=== PATIENT | male | born 1985 | race Caucasian/White ===

== ENCOUNTER 2018-01-22 22:36 | Emergency (ER) | payer OTHER ==
[2018-01-22] MEDS ORDERED: HYDROMORPHONE HCL INJ/PF 2 MG/ML AMPULE IV ONE (23:15)
[2018-01-22] MEDS ORDERED: NORMAL SALINE 1000 ML 1,000 ML IV ONE (23:15)
[2018-01-22] MEDS ORDERED: ONDANSETRON HCL INJ/PF 4 MG/2 ML SDV IV ONE (23:15)
--- NOTE | 2018-01-22 23:19 | ER Document Report ---
ED General - General Chief Complaint: Abdominal Pain Stated Complaint: ABDOMINAL PAIN Time Seen by Provider: 01/22/18 23:10 Notes: Patient is a 32-year-old male presents with complaint of epigastric abdominal pain. Is been intermittent for a few months. Became severe tonight. Says is always worse whenever he eats or drinks. He has some vomiting. No blood in his emesis. No black or tarry stools. Never had any abdominal surgeries. Is not yet seen his doctor about this. Denies any fevers. Does not take any medications on a regular basis. He says he has been under some stress recently. No chest pain. He says sometimes he will take Prilosec for this and it does help sometimes. TRAVEL OUTSIDE OF THE [place] IN LAST 30 DAYS: No Past Medical History - Social History Smoking Status: Never Smoker Frequency of alcohol use: None Drug Abuse: None Family History: Reviewed & Not Pertinent - Immunizations Hx Diphtheria, Pertussis, Tetanus Vaccination: Yes - 2010 Review of Systems - Review of Systems Notes: My Normal Review Basic REVIEW OF SYSTEMS: CONSTITUTIONAL : Denies fever, chills, or sweats. Denies recent illness. EENT: Denies eye, ear, throat, or mouth pain or symptoms. Denies nasal or sinus congestion. CARDIOVASCULAR: Denies chest pain. RESPIRATORY: Denies cough, cold, or chest congestion. Denies shortness of breath, difficulty breathing, or wheezing. GASTROINTESTINAL: epigastric abdominal pain. Vomiting. GENITOURINARY: Denies difficulty urinating, painful urination, burning, frequency, or blood in urine. MUSCULOSKELETAL: Denies neck or back pain or joint pain or swelling. SKIN: Denies rash or skin lesions. NEUROLOGICAL: Denies altered mental status or loss of consciousness. Denies headache. Denies weakness or paralysis or loss of use of either side. Denies problems with gait or speech. Denies sensory or motor loss. ALL OTHER SYSTEMS REVIEWED AND NEGATIVE. Physical Exam - Vital signs Vitals: Temp Pulse Resp BP Pulse Ox 97.4 F 65 18 184/109 H 100 01/22/18 22:37 01/22/18 22:37 01/22/18 22:37 01/22/18 22:37 01/22/18 22:37 - Notes Notes: General Appearance: Well nourished, alert, cooperative, no acute distress, moderate obvious discomfort. Well-appearing. Vitals: reviewed, See vital signs table. Head: no swelling or tenderness to the head Eyes: PERRL, EOMI, Conjuctiva clear Mouth: No decreasd moisture Lungs: No wheezing, No rales, No rhonci, No accessory muscle use, good air exchange bilaterally. Heart: Normal rate, Regular rythm, No murmur, no rub Abdomen: Normal BS, soft, No rigidity, mild epigastric and some right upper quadrant abdominal tenderness palpation., No guarding, no rebound, no abdominal masses, no organomegaly Extremities: strength 5/5 in all extremities, good pulses in all extremities, no swelling or tenderness in the extremities, no edema. Skin: warm, dry, appropriate color, no rash Neuro: speech clear, oriented x 3, normal affect, responds appropriately to questions. Course - Re-evaluation Re-evalutation: 01/23/18 00:58 Currently patient is pain-free and looks well. Awaiting results of his ultrasound. 01/23/18 05:48 Ultrasound shows very mildly thickened gallbladder wall. He does have some gallstones but there is no surrounding pericholecystic fluid. Also the patient does not have a leukocytosis and almost all his pain on palpation is in epigastric region. He has very little pain on palpation of right upper quadrant initial exam and now has no pain to palpation of right upper quadrant. Informed patient his gallbladder could be contributing to some symptoms however I think most of his symptoms are related to gastritis and reflux as the patient continues to feel some reflux type symptoms going into his esophagus. I will place him on Pepcid. Also patient did mention that he is under a lot of stress recently. He said his doctor has sent him to see a psychiatrist. He has an upcoming point with a psychiatrist. I asked about suicidal ideations and he says he has had some in the past but currently is not suicidal and has no intention on hurting himself. Patient's father is at bedside and agrees. Patient says he is not a danger to himself he does not wish to speak with our mental health people here and wants to wait for his appointment. Patient agrees to return to ER immediately if he has recurrent thoughts of suicide or thought that he was to hurt himself or has worsening depression. Also will refer the patient surgery clinic for further evaluation of his gallbladder. I informed patient of his findings on ultrasound and informed him that he should call the surgical clinic office this morning to make a close follow-up appointment. I talked about diet changes and avoiding spicy, fried, and fatty foods. I informed him he must have a low threshold to return to ER immediately if he has recurrent pain, vomiting, any fevers, or feels that his symptoms are returning in any way. Patient agrees with plan and was discharged home. Dictation of this chart was performed using voice recognition software; therefore, there may be some unintended grammatical errors. - Vital Signs Vital signs: Temp Pulse Resp BP Pulse Ox 97.3 F 75 15 131/56 H 99 01/23/18 01:54 01/23/18 01:54 01/23/18 01:54 01/23/18 01:54 01/23/18 01:54 - Laboratory Result Diagrams: 01/22/18 23:25 01/22/18 23:25 Laboratory results interpreted by me: 01/22/18 01/22/18 23:25 23:25 MCV 79 L MCH 26.9 L RDW 14.2 H Potassium 3.5 L - EKG Interpretation by Me Additional EKG results interpreted by me: 01/22/18 23:59 EKG is reviewed and interpreted by me. EKG shows sinus rhythm with a rate of [address] segment elevation or depression. No ischemic T wave inversions. MO interval, QRS duration, QTc intervals are within normal range. Discharge - Discharge Clinical Impression: Abdominal pain Qualifiers: Abdominal location: epigastric Qualified Code(s): R10.13 - Epigastric pain Cholelithiasis Qualifiers: Cholelithiasis location: gallbladder Cholecystitis presence: without cholecystitis Biliary obstruction: without biliary obstruction Qualified Code(s) : K80.20 - Calculus of gallbladder without cholecystitis without obstruction Hypertension Qualifiers: Hypertension type: unspecified Qualified Code(s): I10 - Essential (primary) hypertension Depression Qualifiers: Depression Type: unspecified Qualified Code(s): F32.9 - Major depressive disorder, single episode, unspecified Condition: Good Disposition: HOME, SELF-CARE Additional Instructions: As discussed with you, your ultrasound did show that you have some gallstones. Your gallbladder wall is just slightly thickened; however, your blood work does not show signs of gallbladder infection. Pain is mostly in the upper middle portion of your abdomen which suggests a lot of your pain is coming from the stomach itself. We therefore we will place you on Pepcid every day. I still think some of your symptoms could be coming from her gallbladder and therefore referred you to the surgery clinic. He did have a low threshold to return to the ER if you develop fevers, recurrent pain, or vomiting as these could be signs that your gallbladder is becoming infected. Also, please return to the ER immediately if you having thoughts of suicide or think your danger to herself. Please eat a very bland diet and avoid fatty foods, fried foods, and spicy foods. Please call the surgery clinic this morning to make a close follow up appointment. Please keep a log of your blood pressures and follow up with your primary care doctor. Prescriptions: Famotidine [Pepcid 40 mg Tablet] 40 mg PO DAILY #30 tablet Ondansetron [Zofran Odt 4 mg Tablet] 1 tab PO Q4H PRN #15 tab.rapdis PRN Reason: For Nausea/Vomiting Forms: Return to Work Referrals: JORGE MEJÍA MD [ACTIVE STAFF] - 01/25/18
[2018-01-22 23:36] LABS: ABSOLUTE BASOPHILS # (AUTO) 0.1 10^3/uL (0.0-0.2); ABSOLUTE EOSINOPHILS # (AUTO) 0.3 10^3/uL (0.0-0.6); ABSOLUTE MONOCYTES (AUTO) 0.7 10^3/uL (0.1-1.4); ABSOLUTE NEUT (AUTO) 7.1 10^3/uL (1.7-8.2); BASOPHILS % (AUTO) 0.8 % (0-2); EOSINOPHILS % (AUTO) 3.2 % (0-6); HEMATOCRIT 43.4 % (37.9-51.0); HEMOGLOBIN 14.8 g/dL (13.5-17.0); LYMPHOCYTES % (AUTO) 19.7 % (13-45); MEAN CORPUSCULAR HEMOGLOBIN 26.9 pg (27.0-33.4); MEAN CORPUSCULAR VOLUME 79 fl (80-97); MONOCYTES % (AUTO) 7.2 % (3-13); PLATELET COUNT 284 10^3/uL (150-450); RED BLOOD COUNT 5.48 10^6/uL (4.35-5.55); RED CELL DISTRIBUTION WIDTH 14.2 % (11.5-14.0); SEGMENTED NEUTROPHILS % (AUTO) 69.1 % (42-78); TOTAL CELLS COUNTED % (AUTO) 100 %; WHITE BLOOD COUNT 10.3 10^3/uL (4.0-10.5)
[2018-01-22 23:47] LABS: ALANINE AMINOTRANSFERASE 28 U/L (21-72); ALBUMIN 4.5 g/dL (3.5-5.0); ALKALINE PHOSPHATASE 77 U/L (38-126); ANION GAP 11 (5-19); ASPARTATE AMINO TRANSFERASE 20 U/L (17-59); BILIRUBIN,DIRECT 0.2 mg/dL (0.0-0.4); BILIRUBIN,TOTAL 0.8 mg/dL (0.2-1.3); BLOOD UREA NITROGEN 10 mg/dL (7-20); CALCIUM 9.2 mg/dL (8.4-10.2); CARBON DIOXIDE 30 mmol/L (22-30); CHLORIDE 100 mmol/L (98-107); GLUCOSE 104 mg/dL (75-110); LIPASE 112.5 U/L (23-300); POTASSIUM 3.5 mmol/L (3.6-5.0); SODIUM 140.9 mmol/L (137-145); TOTAL PROTEIN 7.4 g/dL (6.3-8.2)
--- NOTE | 2018-01-23 01:01 | RADIOLOGY REPORT (SQ) ---
US ABDOMEN DOPPLER LIMITED HISTORY: epigastric and RUQ abdominal pain COMPARISON: None. TECHNIQUE: Grayscale and color Doppler imaging of the right upper quadrant was performed. FINDINGS: The liver measures 18.9 cm. Increased echogenicity of the hepatic parenchyma with decreased through transmission and poor visualization of the portal triads, suggesting hepatic steatosis. Shadowing gallstones are present. Borderline thickened gallbladder wall. No pericholecystic fluid. Common bile duct measures 4 mm. No intrahepatic biliary ductal dilatation. The pancreas is not visualized due to overlying bowel gas. Right kidney measures 11.5 cm in length, without hydronephrosis. Visualized portions of the IVC and aorta are patent. IMPRESSION: Gallstones with borderline thickened gallbladder wall. Findings are ambiguous for acute cholecystitis.
[2018-01-23] MEDS ORDERED: MAG HYDROX/AL HYDROX/SIMETH SUSP 30 ML UDCUP PO ONE (01:34)
[2018-01-23] MEDS ORDERED: FAMOTIDINE 20 MG TABLET PO ONE (01:35)
[2018-01-23] MEDS ORDERED: ONDANSETRON ODT 4 MG TAB (6 TAB/ER DISP) PO PRN (01:40)
[2018-01-23 01:58] VITALS: BP 131/56
--- NOTE | 2018-01-23 10:44 | EKG REPORT ---
SEVERITY:- NORMAL ECG - SINUS RHYTHM : Confirmed by: Julianne Richter 23-Jan-2018 10:44:16
== END 2018-01-23 01:55 | disposition home or self-care (01) ==
LOC: ER 22:36
DX: K80.20 Calculus of gallbladder without cholecystitis without obstruction (principal); I10 Essential (primary) hypertension; R10.13 Epigastric pain; F32.9 Major depressive disorder, single episode, unspecified; R11.10 Vomiting, unspecified
CPT/HCPCS: 93005; 99284; 96361; 96374; 96375; 36415; 83690; 85025; 80053; 76705; 93976; 93010; J1170; J2405; J7030

== ENCOUNTER 2018-01-27 03:11 | Observation (INO) | payer OTHER ==
[2018-01-27] MEDS ORDERED: HYDROMORPHONE HCL INJ/PF 2 MG/ML AMPULE IV ONE ×3 (03:38→05:05)
[2018-01-27] MEDS ORDERED: ONDANSETRON HCL INJ/PF 4 MG/2 ML SDV IV ONE (03:38)
[2018-01-27] MEDS ORDERED: NORMAL SALINE 1000 ML 1,000 ML IV ONE (03:38)
--- NOTE | 2018-01-27 03:46 | ER Document Report ---
ED General - General Chief Complaint: Abdominal Pain Stated Complaint: ABDOMINAL PAIN Time Seen by Provider: 01/27/18 03:35 Notes: Patient is a 32-year-old male who presents with complaints of severe right upper quadrant abdominal pain and epigastric pain. He was seen by me a few days ago. At this time he had slight gallbladder wall thickening but his symptoms are completely resolved and his labs were normal and therefore he preferred to follow-up out patiently. He did call the surgery clinic made an outpatient follow-up appointment for next Sunday. Tonight became pain became much more severe and therefore he returned to ER. Had vomiting several times since this morning. No blood in his emesis. No black or tarry stools. No fevers. No other complaints at this time. TRAVEL OUTSIDE OF THE [place] IN LAST 30 DAYS: No - Related Data Allergies/Adverse Reactions: No Known Allergies Allergy (Verified 01/27/18 04:21) Past Medical History - Social History Smoking Status: Never Smoker Frequency of alcohol use: None Drug Abuse: None Family History: Reviewed & Not Pertinent Renal/ Medical History: Denies: Hx Peritoneal Dialysis - Immunizations Hx Diphtheria, Pertussis, Tetanus Vaccination: Yes - 2010 Review of Systems - Review of Systems Notes: My Normal Review Basic REVIEW OF SYSTEMS: CONSTITUTIONAL : Denies fever, chills, or sweats. Denies recent illness. EENT: Denies eye, ear, throat, or mouth pain or symptoms. Denies nasal or sinus congestion. RESPIRATORY: Denies cough, cold, or chest congestion. Denies shortness of breath, difficulty breathing, or wheezing. GASTROINTESTINAL: Epigastric and right upper quadrant abdominal pain. Recurrent vomiting. MUSCULOSKELETAL: Denies neck or back pain or joint pain or swelling. SKIN: Denies rash or skin lesions. NEUROLOGICAL: Denies altered mental status or loss of consciousness. Denies headache. Denies weakness or paralysis or loss of use of either side. Denies problems with gait or speech. Denies sensory or motor loss. ALL OTHER SYSTEMS REVIEWED AND NEGATIVE. Physical Exam - Vital signs Vitals: Temp Pulse Resp BP Pulse Ox 97.7 F 65 22 H 158/99 H 100 01/27/18 03:25 01/27/18 03:25 01/27/18 03:25 01/27/18 03:25 01/27/18 03:25 - Notes Notes: General Appearance: Well nourished, alert, cooperative, no acute distress, moderate obvious discomfort. Vitals: reviewed, See vital signs table. Head: no swelling or tenderness to the head Eyes: PERRL, EOMI, Conjuctiva clear Mouth: No decreasd moisture Lungs: No wheezing, No rales, No rhonci, No accessory muscle use, good air exchange bilaterally. Heart: Normal rate, Regular rythm, No murmur, no rub Abdomen: Normal BS, soft, No rigidity, moderate to severe epigastric and right upper quadrant abdominal tenderness to palpation. Mild pain over the lower abdomen to palpation., Guarding over upper abdomen., no rebound, no abdominal masses, no organomegaly Extremities: strength 5/5 in all extremities, good pulses in all extremities, no swelling or tenderness in the extremities, no edema. Skin: warm, dry, appropriate color, no rash Neuro: speech clear, oriented x 3, normal affect, responds appropriately to questions. Course - Re-evaluation Re-evalutation: 01/27/18 05:05 Patient's pain became much more severe during the ultrasound. He also had a slight amount of chest pain in the left upper chest. I will obtain EKG. Is unlikely be cardiac. Patient's abdomen is very tender to palpation after the ultrasound. I will order some pain medicine to help calm down his pain. 01/27/18 06:06 Patient's pain is improved again with the pain medicine. Patient's ultrasound was read as cholecystitis. They mention the possibility of biliary obstruction because the patient's common bile duct is mildly dilated at 7 mm. I do not think bile duct obstruction is ongoing being the patient has no liver enzyme or bilirubin enzyme elevation whatsoever. I did discuss the case with Dr. Waldron and he agrees to admit the patient for evaluation for possible cholecystectomy. I have given the patient Zosyn. I informed patient of the plan and he is agreeable to it. - Vital Signs Vital signs: Temp Pulse Resp BP Pulse Ox 97.7 F 65 22 H 158/99 H 100 01/27/18 03:25 01/27/18 03:25 01/27/18 03:25 01/27/18 03:25 01/27/18 03:25 - Laboratory Result Diagrams: 01/27/18 04:00 01/27/18 05:20 Laboratory results interpreted by me: 01/27/18 01/27/18 04:00 05:20 RDW 14.1 H Glucose 136 H - EKG Interpretation by Me Additional EKG results interpreted by me: 01/27/18 05:37 EKG is reviewed and interpreted by me. EKG shows sinus rhythm with a rate of [address] segment elevation or depression. No ischemic T wave inversions. CO interval, QRS duration, QTc intervals are within normal range. Old EKG for comparison is from January 22, 2018. Discharge - Discharge Clinical Impression: Abdominal pain Qualifiers: Abdominal location: upper abdomen, unspecified Qualified Code(s): R10.10 - Upper abdominal pain, unspecified Cholelithiasis Qualifiers: Cholelithiasis location: gallbladder Cholecystitis presence: with cholecystitis Cholecystitis acuity: acute Biliary obstruction: without biliary obstruction Qualified Code(s): K80.00 - Calculus of gallbladder with acute cholecystitis without obstruction Condition: Stable Disposition: ADMITTED INPATIENT Admitting Provider: Surgicalist Unit Admitted: Surgical Floor Referrals: DENISE FRANK FNP [Primary Care Provider] - Follow up as needed
[2018-01-27 04:15] LABS: ABSOLUTE EOSINOPHILS # (AUTO) 0.3 10^3/uL (0.0-0.6); ABSOLUTE LYMPHOCYTES (AUTO) 1.7 10^3/uL (0.5-4.7); ABSOLUTE MONOCYTES (AUTO) 0.6 10^3/uL (0.1-1.4); ABSOLUTE NEUT (AUTO) 7.5 10^3/uL (1.7-8.2); BASOPHILS % (AUTO) 0.4 % (0-2); EOSINOPHILS % (AUTO) 2.6 % (0-6); HEMATOCRIT 41.6 % (37.9-51.0); HEMOGLOBIN 14.6 g/dL (13.5-17.0); MEAN CORPUSCULAR HGB CONC 35.1 g/dL (32.0-36.0); MEAN CORPUSCULAR VOLUME 80 fl (80-97); MONOCYTES % (AUTO) 5.7 % (3-13); PLATELET COUNT 267 10^3/uL (150-450); RED BLOOD COUNT 5.21 10^6/uL (4.35-5.55); RED CELL DISTRIBUTION WIDTH 14.1 % (11.5-14.0); SEGMENTED NEUTROPHILS % (AUTO) 74.3 % (42-78); TOTAL CELLS COUNTED % (AUTO) 100 %; WHITE BLOOD COUNT 10.1 10^3/uL (4.0-10.5)
[2018-01-27] MEDS ORDERED: PIPERACILLIN/TAZOBACTAM 4.5 GM VIAL IV ONE (05:08)
--- NOTE | 2018-01-27 05:15 | RADIOLOGY REPORT (SQ) ---
EXAM DESCRIPTION: US ABDOMEN DOPPLER LIMITED COMPLETED DATE/TME: 01/27/2018 03:35 CLINICAL HISTORY: 32 years, Male, RUQ abdominal pain COMPARISON: 01/23/18. TECHNIQUE: Grayscale and Doppler sonogram of the abdomen. LIMITATIONS: None. FINDINGS: Pancreas: Visualized portion is unremarkable. Aorta: Visualized portion is unremarkable. IVC: Visualized portion is unremarkable. Liver: Parenchyma: Increased echotexture. Length: 19.3 cm. Main portal vein: Normal directional flow. Gallbladder: Intraluminal gallstones: Positive Wall: Measures 3 mm in thickness with pericholecystic fluid. Sonographic Carrera sign: Positive Common bile duct: Diameter: 0.7 cm. Right kidney: Length: 11.0 cm. No hydronephrosis. IMPRESSION: Acute calculus cholecystitis Mildly dilated common bile duct, which may be due to choledocholithiasis. An MRCP may be useful in further evaluation. Fatty liver. 2011 [employer]- All Rights Reserved
[2018-01-27 05:55] LABS: ALANINE AMINOTRANSFERASE 26 U/L (21-72); ALBUMIN 4.3 g/dL (3.5-5.0); ALKALINE PHOSPHATASE 90 U/L (38-126); ANION GAP 13 (5-19); ASPARTATE AMINO TRANSFERASE 22 U/L (17-59); BILIRUBIN,DIRECT 0.4 mg/dL (0.0-0.4); BILIRUBIN,TOTAL 1.3 mg/dL (0.2-1.3); BLOOD UREA NITROGEN 10 mg/dL (7-20); CALCIUM 8.9 mg/dL (8.4-10.2); CARBON DIOXIDE 26 mmol/L (22-30); CHLORIDE 104 mmol/L (98-107); GLUCOSE 136 mg/dL (75-110); LIPASE 78.5 U/L (23-300); POTASSIUM 4.2 mmol/L (3.6-5.0); SODIUM 142.6 mmol/L (137-145); TOTAL PROTEIN 7.3 g/dL (6.3-8.2)
[2018-01-27] MEDS ORDERED: MORPHINE SULFATE 10 MG/ML INJ IV PRN (08:22)
[2018-01-27] MEDS ORDERED: ONDANSETRON HCL INJ/PF 4 MG/2 ML SDV IV PRN (08:22)
[2018-01-27] MEDS ORDERED: DEXTROSE 40% GEL 15 GM TUBE PO PRN ×2 (08:22)
[2018-01-27] MEDS ORDERED: GLUCAGON,HUMAN RECOMB 1 MG INJ SUBCUT PRN (08:22)
[2018-01-27] MEDS ORDERED: DEXTROSE 50%-WATER 25 GM/50 ML DISP.SYRIN IV PRN ×2 (08:22)
[2018-01-27] MEDS: DEXTROSE 5%-LACTATED RINGERS 1,000 ML IV PRN ×2 (08:39→21:09)
--- NOTE | 2018-01-27 09:54 | EKG REPORT ---
SEVERITY:- NORMAL ECG - SINUS RHYTHM : Confirmed by: Julianne Richter 27-Jan-2018 09:53:10
[2018-01-27] MEDS: FAMOTIDINE INJ/PF 20 MG/2 ML SDV IV SCH ×2 (10:09→21:09)
[2018-01-27] MEDS: PIPERACILLIN SODIUM/TAZOBACTAM 3.375 GM in NORMAL SALINE 100 ML IV SCH ×2 (11:45→18:04)
--- NOTE | 2018-01-27 13:07 | RADIOLOGY REPORT (SQ) ---
EXAM DESCRIPTION: MRI ABDOMEN WITHOUT COMPLETED DATE/TIME: 01/27/2018 12:52 pm REASON FOR STUDY: MRCP for dilated common bile duct COMPARISON: None. TECHNIQUE: Noncontrast MRCP. Source and MIP images reviewed. LIMITATIONS: Motion. FINDINGS: GALLBLADDER: Gallstones. Pericholecystic fluid. INTRAHEPATIC DUCTS: Nondilated. EXTRAHEPATIC DUCTS: Common duct is normal caliber. No dilatation of the pancreatic duct. No ductal filling defects noted. PANCREAS: Generally homogeneous, no gross mass or significant signal alteration. No surrounding infl ammatory changes or fluid. Pancreatic duct is normal. LIVER, SPLEEN, KIDNEYS, ADRENALS: No significant abnormality. VESSELS: No aneurysm. LUNG BASES: Grossly clear. OTHER: No other significant finding. IMPRESSION: Acute cholecystitis. No evidence of choledocholithiasis. TECHNICAL DOCUMENTATION: JOB ID: [id number] [employer]- All Rights Reserved Reading location - IP/workstation name: [email or web address]
[2018-01-27] MEDS: KETOROLAC TROMETHAMINE INJ/PF 30 MG/1 ML SDV IV SCH ×2 (14:43→21:09)
--- NOTE | 2018-01-27 19:27 | PDOC H&P ---
History of Present Illness Admission Date/PCP: 01/27/18 06:16 SYD SAUL Patient complains of: Right upper quadrant pain, nausea, and vomiting. History of Present Illness: RAJ JUÁREZ is a 32 year old male with known history of gallstones. The patient presented to the emergency room several days ago with nausea and vomiting, however it subsided. Patient preferred outpatient workup to inpatient cholecystectomy at that time. The patient has returned to the emergency room today. The patient has persistent nausea, vomiting, and abdominal pain. His pain is located in the right upper quadrant, and is an 8 out of 10 at its worst. Eating makes his pain worse, nothing makes it better. The patient has a family history of gallbladder disease. Workup today in the ER confirms gallbladder wall thickening, pericholecystic fluid, elevated bilirubin, and a dilated common bile duct. The patient denies fevers, chills, chest pain, shortness of breath, headache, dizziness, orthostasis, malaise, fatigue, blurry vision hematochezia, hematemesis, melena, constipation. Past Medical History GI Medical History: Reports: Gastroesophageal Reflux Disease Past Surgical History Past Surgical History: Reports: None Social History Information Source: Patient Smoking Status: Never Smoker Drugs: None - Advance Directive Resuscitation Status: Full Code Family History Family History: Reviewed & Not Pertinent, Other - Gallbladder disease Parental Family History Reviewed: Yes Children Family History Reviewed: Yes Sibling(s) Family History Reviewed.: Yes Medication/Allergy Home Medications: Famotidine [Pepcid 40 mg Tablet] 40 mg PO DAILY #30 tablet 01/23/18 Allergies/Adverse Reactions: No Known Allergies Allergy (Verified 01/27/18 04:21) Review of Systems Constitutional: ABSENT: chills, fatigue, fever(s), headache(s) Eyes: ABSENT: visual disturbances Ears: ABSENT: hearing changes Nose, Mouth, and Throat: ABSENT: sore throat Cardiovascular: ABSENT: chest pain, palpitations Respiratory: ABSENT: cough, dyspnea Gastrointestinal: PRESENT: abdominal pain - Right upper quadrant, nausea, vomiting. ABSENT: hematemesis, hematochezia, melena Musculoskeletal: ABSENT: deformity Integumentary: ABSENT: pruritus, rash Neurological: ABSENT: abnormal movements, abnormal speech, confusion, convulsions, dizziness Psychiatric: ABSENT: anxiety, depression Endocrine: ABSENT: cold intolerance, heat intolerance Hematologic/Lymphatic: ABSENT: easy bleeding, easy bruising Physical Exam Vital Signs: Temp Pulse Resp BP Pulse Ox 97.9 F 71 14 133/85 H 100 01/27/18 17:00 01/27/18 17:00 01/27/18 17:00 01/27/18 17:00 01/27/18 17:00 Intake & Output 01/26/18 01/27/18 01/28/18 06:59 06:59 06:59 Intake Total 935 Balance 935 General appearance: PRESENT: morbidly obese Head exam: PRESENT: atraumatic, normocephalic Eye exam: PRESENT: EOMI, PERRLA. ABSENT: scleral icterus Mouth exam: PRESENT: moist, neck supple Neck exam: ABSENT: meningismus, tenderness, thyromegaly, tracheal deviation Respiratory exam: PRESENT: clear to auscultation marco antonio, unlabored. ABSENT: chest wall tenderness, tachypnea Cardiovascular exam: PRESENT: RRR Pulses: PRESENT: normal radial pulses Vascular exam: PRESENT: normal capillary refill. ABSENT: pallor GI/Abdominal exam: PRESENT: guarding, Carrera's sign, soft, tenderness - Right upper quadrant. ABSENT: distended Rectal exam: PRESENT: deferred Extremities exam: ABSENT: clubbing Musculoskeletal exam: ABSENT: deformity Neurological exam: PRESENT: alert, awake, oriented to person, oriented to place , oriented to time, oriented to situation, CN II-XII grossly intact Psychiatric exam: ABSENT: agitated, anxious, depressed Focused psych exam: ABSENT: delusional Skin exam: ABSENT: cyanosis, erythema, jaundice Results Laboratory Results: Bilirubin 1.3 Impressions: Abdomen Ultrasound 01/27/18 03:35 IMPRESSION: Acute calculus cholecystitis Mildly dilated common bile duct, which may be due to choledocholithiasis. An MRCP may be useful in further evaluation. Fatty liver. 2011 [employer]- All Rights Reserved Assessment & Plan - Diagnosis (1) Acute cholecystitis Is this a current diagnosis for this admission?: Yes - Plan Summary Plan Summary: Is a 32-year-old male with acute cholecystitis. The patient was also found to have a mildly elevated bilirubin at 1.3 with a dilated common bile duct at 7 mm. I will admit the patient, place him on antibiotics, and obtain an MRCP to ensure that he does not have choledocholithiasis. As long as there are no stones in the common bile duct. The patient can undergo cholecystectomy tomorrow. This has been discussed with the patient and his family. He is in agreement with the treatment plan.
[2018-01-28] MEDS: PIPERACILLIN SODIUM/TAZOBACTAM 3.375 GM in NORMAL SALINE 100 ML IV SCH ×4 (01:34→17:39)
[2018-01-28] MEDS: KETOROLAC TROMETHAMINE INJ/PF 30 MG/1 ML SDV IV SCH (06:06)
[2018-01-28 06:33] LABS: ABSOLUTE BASOPHILS # (AUTO) 0.1 10^3/uL (0.0-0.2); ABSOLUTE EOSINOPHILS # (AUTO) 0.3 10^3/uL (0.0-0.6); ABSOLUTE MONOCYTES (AUTO) 0.6 10^3/uL (0.1-1.4); ABSOLUTE NEUT (AUTO) 3.9 10^3/uL (1.7-8.2); BASOPHILS % (AUTO) 0.9 % (0-2); EOSINOPHILS % (AUTO) 4.8 % (0-6); HEMATOCRIT 36.4 % (37.9-51.0); HEMOGLOBIN 12.6 g/dL (13.5-17.0); LYMPHOCYTES % (AUTO) 29.4 % (13-45); MEAN CORPUSCULAR HEMOGLOBIN 27.7 pg (27.0-33.4); MEAN CORPUSCULAR HGB CONC 34.7 g/dL (32.0-36.0); MEAN CORPUSCULAR VOLUME 80 fl (80-97); MONOCYTES % (AUTO) 8.4 % (3-13); PLATELET COUNT 207 10^3/uL (150-450); RED BLOOD COUNT 4.57 10^6/uL (4.35-5.55); SEGMENTED NEUTROPHILS % (AUTO) 56.5 % (42-78); TOTAL CELLS COUNTED % (AUTO) 100 %; WHITE BLOOD COUNT 6.9 10^3/uL (4.0-10.5)
[2018-01-28 06:50] LABS: ALANINE AMINOTRANSFERASE 18 U/L (21-72); ALKALINE PHOSPHATASE 61 U/L (38-126); ANION GAP 7 (5-19); ASPARTATE AMINO TRANSFERASE 13 U/L (17-59); BILIRUBIN,DIRECT 0.3 mg/dL (0.0-0.4); BILIRUBIN,TOTAL 1.3 mg/dL (0.2-1.3); BLOOD UREA NITROGEN 9 mg/dL (7-20); CALCIUM 8.3 mg/dL (8.4-10.2); CARBON DIOXIDE 28 mmol/L (22-30); CHLORIDE 106 mmol/L (98-107); GLUCOSE 117 mg/dL (75-110); POTASSIUM 3.9 mmol/L (3.6-5.0); SODIUM 141.3 mmol/L (137-145); TOTAL PROTEIN 5.6 g/dL (6.3-8.2)
[2018-01-28] MEDS: FAMOTIDINE INJ/PF 20 MG/2 ML SDV IV SCH (09:18)
[2018-01-28] MEDS: DEXTROSE 5%-LACTATED RINGERS 1,000 ML IV PRN ×2 (09:25→14:28)
[2018-01-28] MEDS ORDERED: BUPIVACAINE HCL 0.5 % INJ/PF 30 ML SDV ONE (10:19)
[2018-01-28] MEDS ORDERED: FENTANYL CITRATE INJ/PF 100 MCG/2 ML AMPUL ONE ×3 (10:42→13:11)
[2018-01-28] MEDS ORDERED: PROPOFOL INJ 200 MG/20 ML VIAL IV ONE (10:43)
[2018-01-28] MEDS ORDERED: MIDAZOLAM 2 MG/2 ML INJ ONE (10:43)
[2018-01-28] MEDS ORDERED: ACETAMINOPHEN 1,000 MG/100 ML RTUPB IV ONE (10:43)
[2018-01-28] MEDS ORDERED: MORPHINE SULFATE 10 MG/ML INJ IV PRN (11:17)
[2018-01-28] MEDS ORDERED: DIPHENHYDRAMINE HCL 50 MG/ML VIAL IV PRN (11:17)
[2018-01-28] MEDS ORDERED: PROMETHAZINE HCL INJ 25 MG/1 ML VIAL IV PRN ×2 (11:17)
[2018-01-28] MEDS ORDERED: MEPERIDINE HCL/PF INJ 25 MG/1 ML DISP.SYRIN IV PRN (11:17)
[2018-01-28] MEDS ORDERED: FENTANYL CITRATE INJ/PF 100 MCG/2 ML AMPUL IV PRN ×2 (11:17)
[2018-01-28] MEDS ORDERED: ONDANSETRON HCL INJ/PF 4 MG/2 ML SDV IV PRN (12:55)
[2018-01-28] MEDS ORDERED: KETOROLAC TROMETHAMINE INJ/PF 30 MG/1 ML SDV IV PRN (12:55)
--- NOTE | 2018-01-28 12:55 | Operative Report ---
Operative Report DATE OF SURGERY: 01/28/18 PREOPERATIVE DIAGNOSIS: Acute cholecystitis with cholelithiasis POSTOPERATIVE DIAGNOSIS: Same OPERATION: Laparoscopic cholecystectomy SURGEON: JORGE MEJÍA ANESTHESIA: GA TISSUE REMOVED OR ALTERED: 1 gallbladder with contents COMPLICATIONS: None ESTIMATED BLOOD LOSS: 100 cc INTRAOPERATIVE FINDINGS: See below PROCEDURE: The patient was taken for the preop holding her to the main operating room where general anesthesia was induced. Arms were abducted, abdomen prepped draped sterile fashion, instrumentation set up for laparoscopic cholecystectomy Surgical plan and surgical timeout were conducted. Markings were made on the skin for 4 port laparoscopy. Skin was anesthetized at all 4 sites with quarter percent Marcaine. A super umbilical vertical incision was made with a knife Veress needle inserted into the peritoneal cavity pneumoperitoneum was established. The needle was removed and a 5 mm ports inserted a 5 mm viewing scope was inserted. Under direct visualization 3 additional ports were placed one in the subxiphoid one in the far right upper quadrant and one in the mid right upper quadrant Visualization of peritoneal cavity confirmed sensitive bowel or vascular injury during port insertion. The findings are significant for distended gallbladder acutely inflamed edematous and enlarged. It was aspirated of approximately 50 cc of dark thick oil like bile. We now placed the patient in extreme reverse Trendelenburg, and tilted the patient to the left side. Graspers were placed on the gallbladder, and we proceeded to take down the adhesions between the greater omentum and the gastroduodenal area with a combination of blunt, hook electrocautery and LigaSure dissection. Unfortunately due to the massive size of the gallbladder and the extensive inflammation, we were now getting towards the infundibulum and the window of exposure was declining. Therefore I approach to the cholecystectomy from a top-down. Graspers were repositioned, and using hook cautery dissection, we began taking the gallbladder off of the right inferior lobe of the liver in uneventful fashion. We worked on both the medial and lateral sides until we got down mcfp through the dissection we encountered some bleeding which required use of the suture, as well as several strips of Surgicel. This is venous oozing which he did with gentle pressure. We continue to the dissection in a methodical fashion working circumferentially around the infundibulum, the neck of the gallbladder. Eventually the gallbladder suspended exclusively from the cystic duct. Photos were taken. At no point did we visualize, or transect a tubular structure consistent with a cystic artery. The patient l likely had several diminutive arteries. Nonetheless at this point we took multiple photos of the cystic duct, gallbladder junction. We now clipped the cystic duct distally, opened the cystic duct and allowed it to drain of the dark bile until there was clear bile coming out. There were no stones or sludge released. We now clipped the cystic duct proximally 2 times and divided the duct with scissors. The gallbladder was placed in an Endobag, the supraumbilical fascial site opened with knife then scissors, and specimen in an Endobag brought through the supraumbilical port site. Specimen was sent to pathology We returned the peritoneal cavity with a port scope checked for bleeding there was none. We reinspected the cystic duct stump, and confirmed clip placement successfully, and no leakage of bile. Photos were taken Patient was leveled out, peritoneal cavity irrigated, no bleeding detected, and concluded the operation was finished. Sponge and needle counts are correct. All ports removed under direct visualization, pneumoperitoneum created and wounds closed at the fascial level above the umbilicus with 0 PDS suture and all skin incisions with 3-0 Vicryl suture. Dressings with benzoin Steri-Strips applied. Patient tolerated procedure well, extubated, taken recovery room in stable condition.
[2018-01-28] MEDS: FENTANYL CITRATE INJ/PF 100 MCG/2 ML AMPUL IV PRN ×2 (13:13→13:25)
[2018-01-28] MEDS ORDERED: LIDOCAINE 2% INJ-PF (20 MG/ML) 2 ML AMPUL ONE (13:49)
[2018-01-28] MEDS ORDERED: DEXAMETHASONE SOD PHOSPHATE INJ 4 MG/1 ML VIAL ONE (13:49)
[2018-01-28] MEDS ORDERED: KETOROLAC TROMETHAMINE 60 MG/2 ML SDV ONE (13:49)
[2018-01-28] MEDS ORDERED: SUCCINYLCHOLINE CHLORIDE INJ 200 MG/10 ML VIAL ONE (13:49)
[2018-01-28] MEDS ORDERED: ONDANSETRON HCL INJ/PF 4 MG/2 ML SDV ONE (13:49)
[2018-01-28] MEDS ORDERED: METOCLOPRAMIDE HCL INJ/PF 10 MG/2 ML SDV ONE (13:49)
[2018-01-28] MEDS ORDERED: DOCUSATE SODIUM 100 MG CAPSULE PO SCH (18:00)
[2018-01-28 18:42] VITALS: BP 149/82
--- NOTE | 2018-01-29 01:41 | DISCHARGE SUMMARY E ---
Discharge Summary NAME: RAJ JUÁREZ : 1985 AGE: 32Y ADMITTED: 01/27/2018 DISCHARGED: 01/28/2018 REASON FOR ADMISSION: Acute cholecystitis. SUMMARY OF HOSPITALIZATION: The patient is a 32-year-old white male presents to the emergency department complaining of acute onset abdominal pain, nausea, and anorexia. He was evaluated by ultrasonography and found to have gallstones with thickened gallbladder wall, pericholecystic fluid, and elevated bilirubin. He was admitted to the surgical service for definitive management. He patient was kept n.p.o. on IV fluids and underwent MRCP which demonstrated no evidence of choledocholithiasis. Therefore patient was taken to the operating by Dr. Gregory Rehman and underwent a laparoscopic cholecystectomy on 01/28/2018. He was found to have an acutely inflamed gallbladder with marked edema. He tolerated the procedure well. There were no postprocedure complications and by the afternoon of the operative day was felt to receive maximum benefit of the hospitalization and was discharged home. FINAL DIAGNOSIS: Acute cholecystitis with cholelithiasis, status post laparoscopic cholecystectomy, Dr. Rehman. DISPOSITION: The patient will be discharged home to the care of his family. Follow up with [facility] in 1-2 weeks. Resume preoperative activities as tolerated. DICTATING PHYSICIAN: GREGORY REHMAN M.D. [id number] NIKOLAI#: [id number] ID: [id number] JOB#: [id number] ACCT: [id number] cc:Luly MAYO M.D. >
== END 2018-01-28 18:55 | disposition home or self-care (01) ==
LOC: ER 03:11 → INTOOBSV 06:16 → EH 06:16 → 4N 09:16
PROVIDERS: ATTEND Surgery
PROC: 0FT44ZZ Resection of Gallbladder, Percutaneous Endoscopic Approach (ICD-10-PCS; principal; 2018-01-28 11:00)
DX: K80.10 Calculus of gallbladder with chronic cholecystitis without obstruction (principal); E66.01 Morbid (severe) obesity due to excess calories; Z68.37 Body mass index [BMI] 37.0-37.9, adult
CPT/HCPCS: 93005; 96376; 99285; 96361; 96375; 96365; 36415 ×2; 83690; 85025 ×2; 80053 ×2; 88304 ×2; 74181; 76705; 93976; 93010; 47562; G0378 ×3; J2250; J3490 ×2; J1100; J1885 ×3; J3010; J2765; J1170; J0330; J2405 ×2; J7030; J2704; S0028 ×2; J2543 ×3; J0131; 790